=== PATIENT | female | born 1970 | race Caucasian/White ===

== ENCOUNTER 2023-10-08 06:07 | Observation (INO) ==
--- NOTE | 2023-09-18 15:52 | PAT Medication Instructions ---
Medication Instructions Date of Service September 18, 2023 Home Medications acetaminophen 500 mg tablet (Tylenol Extra Strength) 1,000 mg PO UD PRN pain or headache albuterol sulfate 90 mcg/actuation aerosol inhaler 1 inh inhalation UD PRN allergy induced asthma dupilumab 300 mg/2 mL subcutaneous pen injector (Dupixent) 300 mg subcut UD levothyroxine 25 mcg tablet 0 mcg PO QAM omeprazole 40 mg capsule,delayed release 40 mg PO QPM semaglutide (weight loss) 0.25 mg/0.5 mL subcutaneous pen injector (Wegovy) 0.25 mg subcut WK ASK your prescriber and surgeon dupilumab 300 mg/2 mL subcutaneous pen injector (Dupixent) 300 mg subcut UD STOP 7 days prior to surgery semaglutide (weight loss) 0.25 mg/0.5 mL subcutaneous pen injector (Wegovy) 0.25 mg subcut WK Take morning of surgery With a small sip of water, OTHERWISE NOTHING TO EAT OR DRINK AFTER MIDNIGHT: acetaminophen 500 mg tablet (Tylenol Extra Strength) 1,000 mg PO UD PRN pain or headache (if needed) albuterol sulfate 90 mcg/actuation aerosol inhaler 1 inh inhalation UD PRN allergy induced asthma (use if needed; please bring rescue inhaler with you to hospital day of surgery if possible) levothyroxine 25 mcg tablet 0 mcg PO QAM Take evening before surgery acetaminophen 500 mg tablet (Tylenol Extra Strength) 1,000 mg PO UD PRN pain or headache (if needed) albuterol sulfate 90 mcg/actuation aerosol inhaler 1 inh inhalation UD PRN a llergy induced asthma (if needed) omeprazole 40 mg capsule,delayed release 40 mg PO QPM Other Notes If you have any questions please call us at [phone] or [phone] or [phone] or [phone]
--- NOTE | 2023-09-26 15:03 | Anesthesiology Consultation ---
Date of Service September 26, 2023 Assessment & Plan (1) Encounter for pre-operative examination: - surgeon ordered medical clearance (Dr. Jeremy Greene). - semaglutide instructions: Patient informed at PAT visit to stop 7 days prior to surgery-voiced understanding. Chart Review Chart Review: Pending: Refer to Additional Notes / Consult section and Patient seen in Pre Admission Testing Teaching & Discussion Pre-Anesthesia Teaching/Discussion Notes: Instructed NPO after midnight before surgery, except medications with 15 cc of water. Medication instructions provided according to the [facility] guidelines. History Surgery Operation Date: 10/08/23 12:55 Proposed Procedures p Anterior Cervical Discectomy and Fusion C4-C5, C5-C6 With Spinal Cord Monitoring - Ralph Mruo, Height/Weight Height: 5 ft 2 in Weight: 69 kg Allergies Allergy/AdvReac Type Severity Reaction Status Date / Time amoxicillin [From Augmentin] Allergy Unknown n/v Verified 09/18/23 14:27 clavulanic acid Allergy Unknown n/v Verified 09/18/23 14:27 [From Augmentin] Medications Home Medications Medication Instructions Recorded Confirmed Last Taken acetaminophen 500 mg tablet 1,000 mg PO UD PRN pain or headache 09/18/23 09/18/23 Unknown (Tylenol Extra Strength) albuterol sulfate 90 mcg/actuation 1 inh inhalation UD PRN allergy 09/18/23 09/18/23 Unknown aerosol inhaler induced asthma dupilumab 300 mg/2 mL subcutaneous 300 mg subcut UD 09/18/23 09/18/23 Unknown pen injector (Dupixent) levothyroxine 25 mcg tablet 0 mcg PO QAM 09/18/23 09/18/23 Unknown omeprazole 40 mg capsule,delayed 40 mg PO QPM 09/18/23 09/18/23 Unknown release semaglutide (weight loss) 0.25 0.25 mg subcut WK 09/18/23 09/18/23 Unknown mg/0.5 mL subcutaneous pen injector (Wegovy) Past Medical History Medical History Acid reflux controlled, stable per pt Allergy-induced asthma well controlled per pt; last rescue inhaler use several months ago Bone spur Neck Degeneration, intervertebral disc, cervical Eczema 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 Exercise / Class Metabolic Activity II 4-5 Yardwork/Stairs/Walk up hill (denies chest discomfort or shortness of breath with one flight of stairs) Past Surgical History Surgical History History of colonoscopy History of endoscopy History of hysterectomy [place] teeth removed Past Anesthesia History No Hx of Anesthesia Complications and No Family Hx of Anesthesia Complications History of PONV No Hx of PONV and No Hx of Motion Sickness STOP BANG Total 1 Social History Smoking Status: Former smoker Do You Dip or Chew Tobacco: No Smoking End Date: 2020 Hx Alcohol Use: No Hx Substance Use: No substance use type: does not use Review of Systems Patient denies chest pain, shortness of breath, dyspnea on exertion, fever, chills, cough, wheezing, or palpitations. Physical Exam Vital Signs Vitals BP 133/88 (white coat hypertension) P 104 (white coat tachycardia) TEMP 98.3 SP02 97% on RA RESP 18 Physical Patient resting comfortably in chair in no acute distress, alert and oriented, responding appropriately throughout visit Full cervical extension range of motion without pain TMD 3.5 finger breadths Mallampati Score 2 Dentition: several caps/crowns; denies chipped or loose teeth, implants or bridges Lungs: normal respiratory effort. Good air movement, clear throughout to auscultation, no adventitious breath sounds Cardiac: regular rate and rhythm, no murmurs noted Carotid arteries: negative bruit bilat Lab Results Anesthesia Preop Results Results Anesthesia Widget: WBC 10.79 K/ul (4.8-10.8) 09/26/23 Hgb 13.6 g/dl (12.0-16.0) 09/26/23 Hct 41.3 % (37.0-47.0) 09/26/23 Plt 349 K/uL (130-400) 09/26/23 PT 10.2 Seconds (9.0-12.0) 09/26/23 PTT 27 Seconds (21-31) 09/26/23 INR 0.9 (0.9-1.1) 09/26/23 Urine Color Yellow 09/26/23 Urine Appearance Clear (Clear) 09/26/23 Urine pH 6.5 (4.5-7.5) 09/26/23 Urine Specific [place] 1.008 (1.000-1.030) 09/26/23 Urine Protein Negative (Negative) 09/26/23 Urine Glucose (UA) Negative (Negative) 09/26/23 Urine Ketones Negative (Negative) 09/26/23 Urine Blood Trace (Negative) H 09/26/23 Urine Nitrite Negative (Negative) 09/26/23 Urine Bilirubin Negative (Negative) 09/26/23 Urine Urobilinogen Negative (Negative) 09/26/23 Urine Leukocyte Esterase Negative (Negative) 09/26/23 Urine WBC (Auto) 0-5 /hpf (0-5) 09/26/23 Urine RBC (Auto) 3-5 /hpf (0-2) H 09/26/23 Urine Hyaline Casts (Auto) 0-2 /lpf (0-2) 09/26/23 Urine Epithelial Cells (Auto) 0-2 /hpf (0-2) 09/26/23 Urine Bacteria (Auto) None Seen (None Seen) 09/26/23 Blood Type A Positive 09/26/23 Antibody Screen NEGATIVE 09/26/23 Testing Laboratory Results 08/20/23 SODIUM: 142 POTASSIUM: 4.4 CHLORIDE: 108 CO2: 27 BUN: 12 CREATININE: 0.7 GLUCOSE: 95 Electrocardiogram Date: 09/27/23 NSR, rate 94 bpm RBBB Chest X-Ray Date: 09/26/23 No acute cardiopulmonary findings.
[2023-10-08] MEDS: LR 15ML/HR IV SCH (06:48)
[2023-10-08] MEDS: LR 60ML/HR IV SCH (06:48)
[2023-10-08] MEDS: ACETAMINOPHEN 500 MG TAB PO SCH (06:48)
[2023-10-08] MEDS: CeleBREX 200 MG CAP PO SCH (06:49)
[2023-10-08] MEDS: GABAPENTIN 900 MG DOSE PO SCH (06:49)
[2023-10-08] MEDS ORDERED: MIDAZOLAM HCL 1 MG/ML 2ML VIAL ONE (07:07)
[2023-10-08] MEDS ORDERED: fentaNYL citrate PF 100 MCG/2 ML VIAL ONE ×2 (07:07→08:16)
[2023-10-08] MEDS ORDERED: ONDANSETRON INJ 2 MG/ML 2 ML VIAL IV PRN ×2 (07:23→11:17)
[2023-10-08] MEDS ORDERED: PROMETHAZINE HCL 6.25 MG in SODIUM CHLORIDE 0.9% 50 ML IV PRN (07:23)
[2023-10-08] MEDS ORDERED: ATROPINE SULFATE 0.1 MG/ML 10ML SYR IV PRN (07:23)
[2023-10-08] MEDS ORDERED: ePHEDrine sulfate 50 MG/ML AMP IV PRN (07:23)
--- NOTE | 2023-10-08 07:51 | History & Physical Bridge Note ---
Date of Service October 08, 2023 History & Physical Bridge Note I have examined the patient, reviewed the History & Physical and in the interval since the performance of the History & Physical I have noted the following changes of clinical significance: no changes noted
--- NOTE | 2023-10-08 07:52 | History & Physical Report ---
Date of Service October 08, 2023 Assessment & Plan (1) Cervical stenosis of spinal canal: Plan: Anterior cervical discectomy and fusion C3-4 C5, C5-C6 History of Present Illness Chief Complaint: Neck and arm pain Primary Care Provider: Jeremy Greene This is a 52-year-old female presents with chronic persistent neck and arm pain after failing course of nonoperative care is here for surgical invention. Allergies Allergy/AdvReac Type Severity Reaction Status Date / Time amoxicillin [From Augmentin] Allergy Unknown n/v Verified 10/08/23 06:34 clavulanic acid Allergy Unknown n/v Verified 10/08/23 06:34 [From Augmentin] Home Medications Medication Instructions Recorded Confirmed Type acetaminophen 500 mg tablet 1,000 mg PO UD PRN pain or headache 09/18/23 10/08/23 History (Tylenol Extra Strength) albuterol sulfate 90 mcg/actuation 1 inh inhalation UD PRN allergy 09/18/23 10/08/23 History aerosol inhaler induced asthma dupilumab 300 mg/2 mL subcutaneous 300 mg subcut UD 09/18/23 10/08/23 History pen injector (Dupixent) levothyroxine 25 mcg tablet 0 mcg PO QAM 09/18/23 10/08/23 History omeprazole 40 mg capsule,delayed 40 mg PO QPM 09/18/23 10/08/23 History release semaglutide (weight loss) 0.25 0.25 mg subcut WK 09/18/23 10/08/23 History mg/0.5 mL subcutaneous pen injector (Wegovy) Past Med/Surg History Problem List (Updated 10/08/23 @ 07:51 by Ralph Muro DO) Cervical stenosis of spinal canal Medical History Acid reflux controlled, stable per pt Allergy-induced asthma well controlled per pt; last rescue inhaler use several months ago Bone spur Neck Degeneration, intervertebral disc, cervical Eczema 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/p excision Hypothyroid Snores denies witnessed apneas Spinal cord compression Noted on MRI per patient Surgical History History of colonoscopy History of endoscopy History of hysterectomy [place] teeth removed Social History Smoking Status: Former smoker Tobacco Type: Cigarettes Smoking End Date: 2020; Do You Dip or Chew Tobacco: No; Hx Alcohol Use: No Hx Substance Use: No Preferred Language: Egyptian Communication Ability: Effective Visual Display Manager Required: No Beliefs That Will Affect Care: None Current Living Situation: Spouse and Family Feels Safe at Home: Yes Assistive Devices: None Physical Exam Physical Exam: Patient is alert and oriented Heart regular rhythm Lungs clear Results & Data Results & Data Vital Signs (Past 12 Hours) Vital Signs Temp Pulse Resp BP Pulse Ox O2 Del Method 10/08/23 06:31 36.5 C 80 16 132/90 99 Room Air
[2023-10-08] MEDS: ceFAZolin 2000MG 2,000 MG/15 ML SYR IV SCH (08:01)
[2023-10-08] MEDS ORDERED: LARYING-O-JET KIT (LTA) ONE (08:16)
[2023-10-08] MEDS ORDERED: PROPOFOL IV EMULSION 10 MG/ML 20 ML VIAL IV ONE (08:16)
[2023-10-08] MEDS ORDERED: DEXAMETHASONE SOD INJ 4 MG/ML VIAL ONE (08:16)
[2023-10-08] MEDS ORDERED: LIDOCAINE 2% 2 ML VIAL/AMP(20MG/ML) INFIL ONE (08:16)
[2023-10-08] MEDS ORDERED: ROCURONIUM BROMIDE 10 MG/ML 5 ML VIAL IV ONE (08:16)
[2023-10-08] MEDS ORDERED: ONDANSETRON INJ 2 MG/ML 2 ML VIAL ONE (08:16)
[2023-10-08] MEDS ORDERED: SUGAMMADEX SODIUM 200 MG/2 ML VIAL IV ONE (08:17)
[2023-10-08] MEDS: ceFAZolin 330 MG/ML 1 GM VIAL ONE (09:10)
[2023-10-08] MEDS: FLOSEAL HEMOSTATIC MATRIX 10ML TOP ONE (09:10)
--- NOTE | 2023-10-08 09:21 | Operative Report ---
Post Operative Report Pre & Post Diagnosis Operation Date: 10/08/23 07:45 Pre-Op Diagnosis: Cervical spinal stenosis with radiculopathy Post-Op Diagnosis: Same I identified the patient and participated in the time-out.: Yes Procedure Operation Date: 10/08/23 07:45 Actual Procedures #1 anterior cervical discectomy with bilateral foraminotomies C4-C5 C5-C6. #2 anterior cervical arthrodesis C4-C5 C5-C6. #3 placement of Spira 7 mm cage filled with [place] bone graft at C5-C6 C6-C7. #4 application of K2 M plate and screws from C4-C6. Surgeon Ralph Muro, DO [employer] Ivelisse Stevens's Estimated Blood Loss 10 Findings Consistent with Post-Op Diagnosis Specimens None Indications This is a 52-year-old female well-known to me that presents above-mentioned diagnosis with failing course of nonoperative care is here for surgical intervention. Description of Procedure Patient was identified informed was obtained. Patient was then taken to the operative suite underwent patient placed in a supine the anterior cervical spine was then prepped and draped no sterile fashion. The assistance of fluoroscopy than 5 the C5 vertebral body and a transverse incision was placed along the right anterior aspect of the cervical spine overlying the region. Blunt dissection with the assistance of bipolar electrocautery is then performed down to and exposing the anterior cervical spine from C4-C6. 17 retractors placed. Then performed a complete discectomy of C4-C5 out to the uncovertebral joints bilaterally. [place] distracting pins utilized to assist in visualization. Removed all posterior annular fibers longitudinal ligament bilateral foraminotomies were performed. Endplates burred to subcortical bleeding bone position on Joss table with the head [place] headrig sawyer. And a 7 mm spiral cage filled with os design bone graft tapped in position. I then proceeded to C5-C6 and again complete discectomy performed out to the uncovertebral notch bilaterally. [place] distracting pins again utilized. Removed all posterior annular fibers longitudinal ligament bilateral foraminotomies performed and again a 7 mm spiral cage filled with os design bone graft tapped in position. All anterior osteophytes burred to a smooth cortical surface and a K2 M plate and screws applied with the assistance of fluoroscopy. The incision was then copiously irrigated explored to ensure no damage to surrounding structures or remaining bleeding. 10 round ADEOLA drain inserted. The incision was then closed with 2 Vicryl in the fascia and 4 Monocryl for final closure. Steri-Strips sterile dressings placed. Patient waken taken to PACU stable condition. Please note spinal cord monitoring usually last about the procedure no changes noted. Hansa Stevens was present at the entire surgery and while the patient positioning complex portion of the surgery and fashion closure. I attest to the content of the Intraoperative Record and any orders documented therein. Any exceptions are noted below.
[2023-10-08] MEDS: fentaNYL citrate PF 100 MCG/2 ML VIAL IV PRN (09:32)
[2023-10-08] MEDS: LABETALOL HCL IV 5 MG/ML 20ML IV STA (10:05)
[2023-10-08] MEDS: LABETALOL HCL IV 5 MG/ML 20ML IV ONE (10:06)
--- NOTE | 2023-10-08 10:08 | Anesthesiology Progress Note ---
Date of Service October 08, 2023 Anesthesia Post Procedure Vital Signs Vital Signs: Temp Pulse Pulse Resp BP BP BP 10/08/23 10:05 83 157/94 H 10/08/23 09:55 79 12 171/92 H 10/08/23 09:45 81 13 164/98 H 10/08/23 09:35 81 17 183/107 H 10/08/23 09:26 36.6 C 97 H 12 171/93 H 10/08/23 06:31 36.5 C 80 16 132/90 Pulse Ox O2 Del Method O2 Flow Rate 10/08/23 10:05 10/08/23 09:55 97 Nasal Cannula 2 10/08/23 09:45 99 Oxymask 5 10/08/23 09:35 100 Oxymask 5 10/08/23 09:26 99 Oxymask 5 10/08/23 06:31 99 Room Air Pain Intensity Anterior Neck: Pain Intensity: 4 Transfer of Care Handoff Completed per policy Notes Mental Status: alert / awake / arousable Patient Amnestic to Procedure: Yes Nausea / Vomiting: adequately controlled Pain: adequately controlled Airway Patency, RR, SpO2: stable & adequate BP & HR: stable & adequate Hydration State: stable & adequate Anesthetic Complications: no major complications apparent
--- NOTE | 2023-10-08 10:18 | Fluoroscopy Report ---
FL cervical 2-3V CLINICAL HISTORY: ACDF C4-C6 COMPARISON STUDY: None FLUOROSCOPY TIME: 10 seconds. Ka, r: 0.91 mGy FLUOROSCOPIC IMAGES: 2 FINDINGS: Fluoroscopy was provided during C4-C6 anterior discectomy and fusion. Hardware is intact. L inear radiodensity projecting over the operative bed on the initial image is not present on the secon d image. Endotracheal tube and surgical drain are incidentally noted. IMPRESSION: Fluoroscopy provided during C4-C6 anterior discectomy and fusion. ACT 112: Negative or not required by law. Electronically signed by: Samir Zavaleta M.D. 10/08/2023 10:17 AM
[2023-10-08] MEDS: HYDROmorphone INJ 2 MG/ML SYR/VIAL IV PRN (10:27)
[2023-10-08] MEDS: HYDROmorphone INJ 2 MG/ML SYR/VIAL ONE (10:32)
[2023-10-08] MEDS ORDERED: ALUMINUM/MAGNESIUM SUSP 30 ML UDC PO PRN (11:17)
[2023-10-08] MEDS ORDERED: dexAMETHasone 8 MG in SYRINGE 0 ML IV PRN (11:17)
[2023-10-08] MEDS ORDERED: HYDROmorphone INJ 1 MG/ML SYRINGE IV PRN (11:17)
[2023-10-08] MEDS ORDERED: LORazepam 0.5 MG TAB PO PRN (11:17)
[2023-10-08] MEDS ORDERED: DO NOT ADMINISTER PNEUMOCOCCAL VACCINE PRN (11:17)
[2023-10-08] MEDS ORDERED: ONDANSETRON 4 MG OD TAB PO PRN (11:17)
[2023-10-08] MEDS ORDERED: FAMOTIDINE 20 MG TAB PO PRN (11:17)
[2023-10-08] MEDS ORDERED: traMADol HCL 50 MG TABLET PO PRN (11:17)
[2023-10-08] MEDS ORDERED: LORazepam 0.5 MG in SYRINGE 0.25 ML IV PRN (11:17)
[2023-10-08] MEDS ORDERED: PROMETHAZINE HCL 12.5 MG in SODIUM CHLORIDE 0.9% 50 ML IV PRN (11:17)
[2023-10-08] MEDS ORDERED: METOCLOPRAMIDE HCL INJ 5 MG/ML 2 ML VIAL IV PRN (11:17)
[2023-10-08] MEDS ORDERED: diphenhydrAMINE Capsule 25 MG CAP PO PRN (11:17)
[2023-10-08] MEDS ORDERED: MAGNESIUM HYDROXIDE SUSP 30 ML UDC PO PRN (11:17)
[2023-10-08] MEDS ORDERED: hydrOXYzine HCl 25 MG TAB PO PRN (11:17)
[2023-10-08] MEDS ORDERED: ACETAMINOPHEN 500 MG TAB PO PRN (11:17)
[2023-10-08] MEDS ORDERED: RACEPINEPHRINE 2.25% NEBU SOLN 0.5 ML VIAL INH PRN (11:17)
[2023-10-08] MEDS ORDERED: DO NOT ADMINISTER FLU VACCINE PRN (11:17)
[2023-10-08] MEDS ORDERED: ALBUTEROL HFA 8 GM INHALER INH PRN (11:17)
[2023-10-08] MEDS ORDERED: SOD PHOSPHATE/SOD BIPHOSPHATE ENEMA 132 ML BTL PR PRN (11:17)
[2023-10-08] MEDS ORDERED: NALOXONE HCL 0.4 MG/1 ML VIAL/CARP IV PRN (11:17)
[2023-10-08] MEDS ORDERED: bisacodyL 10 MG SUPP PR PRN (11:17)
[2023-10-08] MEDS ORDERED: HYDROmorphone INJ 0.5 MG/0.5 ML SYR IV PRN (11:17)
[2023-10-08] MEDS: LACTATED RINGER'S 1,000 ML IV SCH (11:49)
[2023-10-08] MEDS: oxyCODONE HCL IR 5 MG TAB (IMMEDIATE RELEASE) PO PRN (16:06)
[2023-10-08] MEDS: CLINDAMYCIN/D5W 600 MG/50 ML BAG IV SCH (16:09)
[2023-10-08] MEDS: ACETAMINOPHEN 1,000 MG/100 ML VIAL IV PRN (19:14)
[2023-10-08] MEDS: PANTOprazole 40 MG TAB PO SCH (20:56)
[2023-10-08] MEDS: DOCUSATE SODIUM/SENNA 50/8.6MG TAB PO SCH (20:56)
[2023-10-09] MEDS: POLYETHYLENE (MIRALAX) 17 GM PACK PO SCH (05:53)
[2023-10-09] MEDS: dexAMETHasone 6 MG in SYRINGE 0 ML IV SCH (09:47)
--- NOTE | 2023-10-09 09:48 | Discharge Summary ---
Date of Service October 09, 2023 Admission HPI Per Admitting Provider This is a 52-year-old female presents with chronic persistent neck and arm pain after failing course of nonoperative care is here for surgical invention. Principal Diagnosis Cervical spinal stenosis with radiculopathy Discharge Data Allergies Allergy/AdvReac Type Severity Reaction Status Date / Time amoxicillin [From Augmentin] Allergy Unknown n/v Verified 10/08/23 06:34 clavulanic acid Allergy Unknown n/v Verified 10/08/23 06:34 [From Augmentin] Procedures Performed Operation Date: 10/08/23 07:45 Actual Procedures p C4-C5, C5-C6 Anterior Cervical Discectomy and Fusion with Spinal Cord Monitoring(Not Applicable) - Ralph Muro DO Ordered Studies 10/08/23 07:45 [place] cervical 2-3V Routine Hospital Course (1) Cervical stenosis of spinal canal: Patient underwent anterior cervical discectomy and fusion tolerated this well was taken to the orthopedic floor postoperative. Postop day #1 she is up and ambulating swallowing well. No hoarseness. ADEOLA drain decreasing appropriate. Pain well-controlled. Excellent strength testing. Simply discharged home. Dis charge orders instructions from the chart for further review. Total Time Total Time Spent Total Time Spent (In Minutes): 20 minutes Discharge Plan Discharge Items Patient Disposition: Home - Self-Care Reason For Visit: Cervical Spondylosis with Myelopathy, Cervical Rad Discharge Diagnosis: Cervical spinal stenosis with radiculopathy Activity: As commented below Non-emergency contact: Primary Care Provider Call non-emergency contact if: you have any medication questions Follow-up/Referrals: Jeremy Greene M.D. [Primary Care Provider] - Diet: Regular Addtl Attending Provider Instructions: ACTIVITY RECOMMENDATIONS: SELF CARE INSTRUCTIONS AFTER CERVICAL FUSIONS 1. No smoking. Smoking drastically decreases the chance of a solid fusion. 2. No bending, lifting more than 5 pounds, or twisting (roll like a log when turning in bed). 3. You may shower 3 days after surgery. Thoroughly dry wound. Do not soak in the tub. 4. Cervical collar: Must be worn at all times including sleeping. You may remove the brace only to bath, eat and if you are sitting in a recliner. 5. Please walk as much as you can for exercise. Gradually increase the distance that you walk as your endurance increases. SPECIAL CARE INSTRUCTIONS: VERY IMPORTANT TO READ AND REVIEW A. Do not take any anti-inflammatory medications (i.e. Indocin, Advil, Aspirin, Naprosyn, Aleve, Motrin, etc.) as these may inhibit the chance of a solid fusion. Tylenol is okay to take. B. Your surgical incision has been closed with a cosmetic suture under the skin that will dissolve in about 6 weeks. In 14 days, you can use a pair of clean scissors and cut the suture that is left outside of the skin at the ends of your incision. C. Complications are uncommon, but please contact us if you have any signs or symptoms of: 1. wound infection (fever higher than 102.5 degrees F, redness, separation of wound, drainage, or increasing pain from the incision) 2. blood clots in legs (pain, swelling, redness and warmth in legs) 3. urinary tract infection (fever higher than 102.5 degrees, burning upon urination or increased frequency of urination) 4. nerve problems (inability to walk on your toes or heels, numbness, loss of bowel or bladder control) 5. any other symptoms that concern you. D. Please call the office at if you have any concerns or questions about your operation or recovery. MANAGING PAIN AFTER SPINAL SURGERY 1. Narcotic medication is intended for short-term use and will be provided for surgical pain. Surgical pain usually lasts for a period of 4-6 weeks. Na rcotic medication includes Percocet, Vicodin, Darvocet, Tylenol #3 or Lortab. 2. Longer-term pain is more appropriately treated with non-narcotic medication such as Tylenol ES. 3. Muscle spasm is not appropriately treated with narcotics. Muscle relaxers such as Soma, Flexeril or Skelaxin can be used along with Tylenol ES. 4. Remember that we all live with some "aches and pains". This is not unusual or uncommon after an injury or as we get older. 5. We will provide appropriate medication within the normal guidelines of their prescribed use. We will also be very cautious and aware of potential abuse and extended duration of patients' medication needs. 6. Please allow 2-3 days to process refills. Prescriptions will not be mailed but must be picked up at the office. FOLLOW UP VISIT: Keep your scheduled follow-up appointment. Any questions, please call the office at . Pending Studies at Discharge: No Stand-Alone Forms: My [facility], Smoking Cessation Medications and DC Order Prescriptions: New tramadol 50 mg tablet 50 mg PO Q6H PRN (Reason: pain, moderate) Qty: 20 0RF oxycodone 5 mg tablet 5 mg PO Q6H PRN (Reason: pain) Qty: 20 0RF Continued omeprazole 40 mg Capsule,Delayed Release(Dr/Ec) 40 mg PO QPM levothyroxine 25 mcg Tablet 0 mcg PO QAM Dupixent Pen 300 mg/2 mL Pen Injector 300 mg SUBCUT UD Patient Comments: every 2 weeks eczema or dermatitis. Wegovy 0.25 mg/0.5 mL Pen Injector 0.25 mg SUBCUT WK Patient Comments: tuesdays - next dose planned this evening 09/18/23. acetaminophen [Tylenol Extra Strength] 500 mg Tablet 1,000 mg PO UD PRN (Reason: pain or headache) albuterol sulfate 90 mcg/actuation Hfa Aerosol Inhaler 1 inh INHALATION UD PRN (Reason: allergy induced asthma) Patient Comments: no use in months Discharge Orders: Discharge Order (Routine); Ordered 10/09/23 Ordered By: Ralph Muro Admission Data Admit Date/Time: 10/08/23 09:24 Attending Provider: Ralph Muro Admit Provider: Ralph Muro Primary Care Provider: Jeremy Greene
== END 2023-10-09 14:13 | disposition home or self-care (01) ==
LOC: ASU 06:07 → 3E 06:07